=== PATIENT | female | born 1975 | race Caucasian/White ===

== ENCOUNTER → 2023-09-05 10:59 | Outpatient (REF) | payer OTHER, SELFPAY | LOC: WDC 10:59 | PROVIDERS: ATTENDING PHYSICIAN Nurse Practitioner Adult Health | DX: Z12.31 Encounter for screening mammogram for malignant neoplasm of breast (principal) | CPT/HCPCS: 77063; 77067 ==

== ENCOUNTER → 2023-09-18 09:50 | Outpatient (REF) | payer OTHER, SELFPAY | LOC: WDC 09:50 | PROVIDERS: ATTENDING PHYSICIAN Nurse Practitioner Adult Health; FAMILY PHYSICIAN Nurse Practitioner Family | DX: R92.2 Inconclusive mammogram (principal) | CPT/HCPCS: 76641 ==

== ENCOUNTER → 2024-10-08 10:30 | Outpatient (REF) | payer OTHER, SELFPAY | LOC: WDC 10:30 | PROVIDERS: ATTENDING PHYSICIAN Nurse Practitioner Adult Health; FAMILY PHYSICIAN Internal Medicine | DX: Z12.31 Encounter for screening mammogram for malignant neoplasm of breast (principal) | CPT/HCPCS: 77063; 77067 ==